=== PATIENT | female | born 1950 | race Caucasian/White ===

== ENCOUNTER 2017-06-28 05:45 | Day surgery (SDC) | payer MEDICARE, OTHER ==
[~2017-06-28] VITALS: Ht 160 cm; Wt 74.9 kg
[~2017-06-28 05:45] MED LIST: BENA40TA54 PO; [UNRECOGNIZED DRUG - REMARK] PO
[2017-06-28 06:30] VITALS: Ht 160 cm; Wt 74.9 kg
[2017-06-28] MEDS ORDERED: FURO20TA3 PO (06:38)
[2017-06-28] MEDS ORDERED: METO-429 PO (06:38)
[2017-06-28] MEDS ORDERED: POTA8CAP PO (06:38)
[2017-06-28] MEDS ORDERED: METF500T4 PO (06:38)
[2017-06-28 07:06] VITALS: BP 187/66; PULSE 68; RESP 18
--- NOTE | 2017-06-28 07:40 | OPPN ---
Date/Time of Note Date/Time of Note DATE: 06/28/17 TIME: 07:38 Operative Report Preoperative Diagnosis Abdominal pain on chronic heartburn Postoperative Diagnosis Hiatal hernia and gastroesophageal reflux disease Gastritis with multiple erosions Gastric mucosal biopsies were taken for H. pylori test was positive Operation/Procedure Performed Esophagogastroduodenoscopy and biopsy Anesthesia: other Estimated blood loss: none Specimens Gastric mucosal biopsy Complications: None YARY LOYA MD Jun 28, 2017 07:40
[2017-06-28] MEDS ORDERED: MIDAZOLAM 1 MG/ML 2 ML INJ ONE (07:49)
[2017-06-28] MEDS ORDERED: FENTAnyl 50 MCG/ML VIAL ONE (07:49)
[2017-06-28 08:01] VITALS: BP 145/70; PULSE 63; RESP 16
--- NOTE | 2017-06-28 08:33 | GILP ---
DATE OF PROCEDURE: 06/28/2017 PROCEDURE PERFORMED: Esophagogastroduodenoscopy and biopsy. SURGEON: Beata Cano MD PREOPERATIVE DIAGNOSIS: Abdominal pain and chronic heartburn. POSTOPERATIVE DIAGNOSES: 1. Hiatal hernia. 2. Gastroesophageal reflux disease. 3. 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 4. Biopsy was taken for Helicobacter pylori test and it was positive. INDICATION: Ms. Eneida Peng is a 66-year-old female patient who had upper abdominal pain and chronic heartburn not responding to therapy. The patient was scheduled for endoscopic examination for further evaluation. The procedure and possible complications were well explained to the patient. The patient understood and consented to the procedure. DESCRIPTION OF PROCEDURE: Under influence of fentanyl and Versed, the gastroscope was carefully introduced into the esophagus. Under direct vision it was advanced to the stomach into the pylorus into the duodenal bulb, and descending duodenum. FINDINGS: Esophagus, the patient had hiatal hernia and gastroesophageal reflux disease. Stomach, she had gastritis with multiple erosions in the gastric antrum. Biopsies were taken for Helicobacter pylori test and it was positive. Duodenum was normal. She tolerated the procedure very well. There was no complications from the procedure. At the end of procedure she was awake with stable vital signs and she was discharged home in the care of her family. IMPRESSION: Hiatal hernia and gastroesophageal reflux disease. 1. 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 2. Gastric mucosal biopsies were taken for Helicobacter pylori test and it was positive. PLAN: 1. Omeprazole 40 mg p.o. q.a.m. 2. Carafate 1 g p.o. t.i.d. a.c. 3. Zantac 300 mg p.o. b.i.d. for 14 days. 4. Doxycycline 100 mg p.o. b.i.d. for 14 days. 5. Flagyl 500 mg p.o. b.i.d. for 14 days. 6. Pepto-Bismol 2 tablets p.o. q.i.d. for 14 days. Dictated By: MD CASSANDRA Bishop/erika/joel /Document#: [id number]
== END 2017-06-28 17:21 | disposition home or self-care (01) ==
LOC: GIL 05:45
PROVIDERS: ATTEND Internal Medicine Gastroenterology
DX: K21.9 Gastro-esophageal reflux disease without esophagitis (principal); K44.9 Diaphragmatic hernia without obstruction or gangrene; K29.70 Gastritis, unspecified, without bleeding; B96.81 Helicobacter pylori [H. pylori] as the cause of diseases classified elsewhere
CPT/HCPCS: 43239; 82962; 87081; J2250; J3010